=== PATIENT | male | born 1990 | race Caucasian/White ===

== ENCOUNTER 2016-08-14 00:15 | Emergency (ER) | payer OTHER ==
[~2016-08-14] VITALS: Ht 162.6 cm; Wt 56.8 kg
[~2016-08-14 00:15] MED LIST: ASPIR-LOW81 MG PO; CLARITIN10 M3 PO; NASONEX17 GM BOTH NARES; NOHOMEMEDS; SERTRALINE HCL25 MG PO; VERAPAMIL HCL120 M1 PO; VERAPAMIL HCL40 MG PO; XANAX0.25 MG PO
[2016-08-14 01:55] LABS: ADD MIUA? YES; BILIRUBIN NEGATIVE; BLOOD SMALL; COLOR STRAW ((YELLOW)); GLUCOSE (STRIP) NEGATIVE; KETONES NEGATIVE; LEUKOCYTES NEGATIVE; NITRITE NEGATIVE; PROTEIN (STRIP) NEGATIVE; SPECIFIC GRAVITY 1.008 (1.000-1.030); UROBILINOGEN 0.2 MG/DL (0.2-1.0)
[2016-08-14 01:58] LABS: BACTERIA NONE SEEN /HPF; EPITHELIAL CELLS RARE /HPF; MUCUS NONE SEEN /LPF; RED BLOOD CELLS 0-5 /HPF (0-5); UCUL ADDED? NO; WHITE BLOOD CELLS 0-5 /HPF (0-5)
[2016-08-14 02:32] LABS: HEMATOCRIT 44.1 % (38.0-50.0); MCH 30.2 PG (29.0-34.0); MCHC 32.7 G/DL (30.0-36.0); MCV 92.5 FL (86-99); MEAN PLAT.VOLUME 9.7 uM^3 (9.0-12.4); PLATELET COUNT 335 K/uL (156-360); RED BLOOD COUNT 4.77 M/uL (4.00-5.50); WHITE BLOOD COUNT 10.2 K/uL (4.1-10.2)
[2016-08-14 02:39] LABS: CHLORIDE 104 mEq/L (99-109); POTASSIUM 5.1 mEq/L (3.7-5.4); SODIUM 137 mEq/L (136-147)
[2016-08-14 02:41] LABS: GLUCOSE 82 mg/dL (70-99)
[2016-08-14 02:42] LABS: ANION GAP 12 MEQ/L (2-14)
[2016-08-14 02:43] LABS: TOTAL BILIRUBIN 0.4 mg/dL (0.0-1.0)
[2016-08-14 02:45] LABS: ALKALINE PHOSPHATASE 65 IU/L (3-129); GFR ESTIMATE (CALCULATED) > 59 mL/min/
[2016-08-14 02:46] LABS: UREA NITROGEN (BUN) 11 mg/dL (9-23)
[2016-08-14 02:48] LABS: LIPASE 33 U/L (1.0-51.0)
[2016-08-14] MEDS ORDERED: NAPROSYN500 MG PO (03:22)
[2016-08-14] MEDS ORDERED: LIDOCAINE700 MG TD (03:22)
[2016-08-14 03:48] VITALS: BP 112/92
== END 2016-08-14 03:58 | disposition home or self-care (01) ==
LOC: EME 00:15
DX: R10.9 Unspecified abdominal pain (principal); R31.9 Hematuria, unspecified; Z87.440 Personal history of urinary (tract) infections; Z98.1 Arthrodesis status; J45.909 Unspecified asthma, uncomplicated; I47.1 Supraventricular tachycardia; G70.9 Myoneural disorder, unspecified
CPT/HCPCS: 74176; 80053; 81003; 83690; 85027; 99281; 99285; J7030

== ENCOUNTER 2017-05-01 17:29 | Inpatient (IN) | payer OTHER ==
[~2017-05-01] VITALS: Ht 162.6 cm; Wt 55.0 kg
[~2017-05-01 17:29] MED LIST changes: +LIDOCAINE700 MG TD; +NAPROSYN500 MG PO
[2017-05-01 18:46] LABS: HEMATOCRIT 45.1 % (38.0-50.0); HEMOGLOBIN 15.3 G/DL (12.5-16.6); MCH 31.2 PG (29.0-34.0); MCHC 33.9 G/DL (30.0-36.0); MCV 91.9 FL (86-99); PLATELET COUNT 328 K/uL (156-360); RBC DIS.WIDTH-CV 13.1 % (11.8-14.6); RED BLOOD COUNT 4.91 M/uL (4.00-5.50); WHITE BLOOD COUNT 16.2 K/uL (4.1-10.2)
[2017-05-01 18:55] LABS: CHLORIDE 103 mEq/L (99-109); POTASSIUM 4.4 mEq/L (3.7-5.4); SODIUM 135 mEq/L (136-147)
[2017-05-01 18:56] LABS: GLUCOSE 94 mg/dL (70-99)
[2017-05-01 18:58] LABS: APPEARANCE CLEAR ((CLEAR)); BILIRUBIN NEGATIVE; BLOOD MODERATE; COLOR STRAW ((YELLOW)); GLUCOSE (STRIP) NEGATIVE; KETONES 80; LEUKOCYTES NEGATIVE; NITRITE NEGATIVE; PROTEIN (STRIP) NEGATIVE; SPECIFIC GRAVITY 1.008 (1.000-1.030); UROBILINOGEN 0.2 MG/DL (0.2-1.0)
[2017-05-01 19:00] LABS: CREATININE 0.4 mg/dL (0.6-1.3); GFR ESTIMATE (CALCULATED) > 59 mL/min/ (58.99-99999)
[2017-05-01 19:10] LABS: BACTERIA NONE SEEN /HPF; EPITHELIAL CELLS NONE SEEN /HPF; MUCUS TRACE /LPF; UCUL ADDED? NO; WHITE BLOOD CELLS 0-5 /HPF (0-5)
[2017-05-01 19:30] LABS: UREA NITROGEN (BUN) 2 mg/dL (9-23)
[2017-05-01 19:37] LABS: ALBUMIN 4.6 g/dL (3.2-4.8)
[2017-05-01 19:40] LABS: TOTAL PROTEIN 8.1 g/dL (6.4-8.3)
[2017-05-01 19:41] LABS: TOTAL BILIRUBIN 0.6 mg/dL (0.0-1.0)
[2017-05-01 19:42] LABS: ALKALINE PHOSPHATASE 82 IU/L (3-129)
[2017-05-01 19:45] LABS: AST (GOT) 24 IU/L (2-34); DIRECT BILIRUBIN 0.1 mg/dL (0.0-0.3)
[2017-05-01 19:46] LABS: ALT (GPT) 18 IU/L (3-49); LIPASE 4 U/L (1.0-51.0)
[2017-05-01 20:42] LABS: ABS NEUTROPHIL COUNT 13.6; ANISOCYTOSIS 1+; ATYPICAL LYMPHOCYTE 3.5 %; BAND NEUTROPHILS 2.6 % (0-8.0); BASOPHILS 0.9 %; EOSINOPHIL ABS CT 0; LYMPHOCYTES 2.6 % (15.0-45.0); MONOCYTES 8.8 % (0-9.0); PLAT.SUFFICIENCY ADEQUATE; SEG.NEUTROPHILS 81.6 % (46.0-76.0); TOX.VACUOLIZATION 1+
[2017-05-02] MEDS ORDERED: VICODIN 5-3001 EACH PO (00:31)
[2017-05-02 00:55] VITALS: BP 116/67
[2017-05-02 02:41] LABS: BASOPHIL (%) 0.3 % (0-1); EOSINOPHIL (%) 2.2 % (0-5); EOSINOPHIL COUNT 0.3 K/uL (0-0.3); HEMATOCRIT 42.2 % (38.0-50.0); IMMATURE GRANULOCYTE (%) 0.5 % (0.0-0.7); LYMPHOCYTE (%) 17.6 % (15-42); LYMPHOCYTE COUNT 2.2 K/uL (1.0-2.8); MCH 30.4 PG (29.0-34.0); MCHC 33.2 G/DL (30.0-36.0); MCV 91.7 FL (86-99); MONOCYTE (%) 11.5 % (3-12); MONOCYTE COUNT 1.5 K/uL (0-0.8); NEUTROPHIL (%) 67.9 % (45-76); NEUTROPHIL COUNT 8.7 K/uL (1.8-6.4); PLATELET COUNT 319 K/uL (156-360); RBC DIS.WIDTH-CV 13.2 % (11.8-14.6); RBC DIS.WIDTH-SD 44.3 % (39-53); WHITE BLOOD COUNT 12.7 K/uL (4.1-10.2)
[2017-05-02 02:53] LABS: CHLORIDE 108 mEq/L (99-109); POTASSIUM 3.3 mEq/L (3.7-5.4); SODIUM 140 mEq/L (136-147)
[2017-05-02 02:55] LABS: GLUCOSE 113 mg/dL (70-99)
[2017-05-02 02:59] LABS: CREATININE 0.4 mg/dL (0.6-1.3); GFR ESTIMATE (CALCULATED) > 59 mL/min/ (58.99-99999)
[2017-05-02 03:01] LABS: UREA NITROGEN (BUN) < 2 mg/dL (9-23)
[2017-05-02 08:04] VITALS: BP 115/68
[2017-05-02 13:54] VITALS: BP 116/66
[2017-05-02 15:48] VITALS: BP 106/74
[2017-05-02 21:00] VITALS: BP 96/54
[2017-05-02 23:20] VITALS: BP 111/67
[2017-05-03 07:03] VITALS: BP 100/64
[2017-05-03 08:57] LABS: BASOPHIL (%) 0.5 % (0-1); BASOPHIL COUNT 0.1 K/uL (0-0.1); EOSINOPHIL (%) 4.4 % (0-5); EOSINOPHIL COUNT 0.5 K/uL (0-0.3); HEMATOCRIT 37.4 % (38.0-50.0); HEMOGLOBIN 12.5 G/DL (12.5-16.6); IMMATURE GRANULOCYTE (%) 0.3 % (0.0-0.7); LYMPHOCYTE (%) 24.2 % (15-42); LYMPHOCYTE COUNT 2.7 K/uL (1.0-2.8); MCH 31.3 PG (29.0-34.0); MCHC 33.4 G/DL (30.0-36.0); MCV 93.7 FL (86-99); MONOCYTE (%) 11.7 % (3-12); MONOCYTE COUNT 1.3 K/uL (0-0.8); NEUTROPHIL (%) 58.9 % (45-76); NEUTROPHIL COUNT 6.6 K/uL (1.8-6.4); PLATELET COUNT 298 K/uL (156-360); RBC DIS.WIDTH-CV 13.5 % (11.8-14.6); RBC DIS.WIDTH-SD 46.4 % (39-53); RED BLOOD COUNT 3.99 M/uL (4.00-5.50); WHITE BLOOD COUNT 11.3 K/uL (4.1-10.2)
[2017-05-03 09:25] LABS: CHLORIDE 102 MEQ/L (99-109); MAGNESIUM 1.6 mg/dl (1.3-2.7); SODIUM 136 MEQ/L (136-147)
[2017-05-03 09:41] LABS: POTASSIUM 4.6 MEQ/L (3.7-5.4)
[2017-05-03 10:09] LABS: CREATININE < 0.2 MG/DL (0.6-1.3); GFR ESTIMATE (CALCULATED) > 59 mL/min/ (58.99-99999); GLUCOSE 81 mg/dL (70-99); UREA NITROGEN (BUN) 3 mg/dL (9-23)
== END 2017-05-03 12:30 | disposition home or self-care (01) | DRG 854 ==
LOC: EME 17:29 → ENRESERV 22:04 → EDOF 22:05 → 2EAST 22:05 → ENRESERV 22:55 → EDOF 05-02 00:22 → 2EAST 05-02 00:24
PROVIDERS: Hospitalist; Internal Medicine; Urology
PROC: 0TC78ZZ Extirpation of Matter from Left Ureter, Via Natural or Artificial Opening Endoscopic (ICD-10-PCS; principal; 2017-05-02)
PROC: 0T778DZ Dilation of Left Ureter with Intraluminal Device, Via Natural or Artificial Opening Endoscopic (ICD-10-PCS; principal; 2017-05-02)
DX: A41.9 Sepsis, unspecified organism (principal); N13.6 Pyonephrosis; E87.2 Acidosis; E86.0 Dehydration; E87.6 Hypokalemia; I47.1 Supraventricular tachycardia; G12.1 Other inherited spinal muscular atrophy; J45.909 Unspecified asthma, uncomplicated; Z99.3 Dependence on wheelchair; Z98.1 Arthrodesis status; Z87.442 Personal history of urinary calculi
CPT/HCPCS: 74000; 76000; 80048; 80076; 81003; 82365 90; 83605; 83690; 83735; 85007; 85025; 85027; 87040; 87086; 99281; 99285; C1769; J0696; J1170; J1885; J2250; J2405; J3010; J7030